=== PATIENT | female | born 1985 | race Caucasian/White ===

== ENCOUNTER 2018-01-10 08:13 | Outpatient (CLI) | payer OTHER | END 2018-01-10 08:14 | disposition home or self-care (01) | LOC: BICULT 08:13 | PROVIDERS: ATTEND Family Medicine | DX: R10.11 Right upper quadrant pain (principal); K82.8 Other specified diseases of gallbladder | CPT/HCPCS: 76700 ==

== ENCOUNTER 2018-04-10 06:33 | Day surgery (SDC) | payer OTHER ==
[2018-04-09 11:36] VITALS: BMI 36.8
--- NOTE | 2018-04-09 13:36 | ADD-HP ---
ADDENDUM Remedios Morales is a 32-year-old female prisoner initially evaluated for symptomatic cholelithiasis a nd cholecystitis who has now been approved for laparoscopic cholecystectomy. She is here today for t [facility] evaluation. LABORATORY DATA: Laboratories at [facility] on 04/01/2018; sodium 139, potassium 4.1, ch loride 106, CO2 23, creatinine 0.8, calcium 9.6, glucose 91, AST 23, ALT 68, alkaline phosphatase 78, bilirubin 0.5, white count 8.3, hemoglobin 13, hematocrit 39, platelet count 332,000. PHYSICAL EXAMINATION: LUNGS: Clear to auscultation. CARDIAC: Regular rate and rhythm without murmur or gallop. ABDOMEN: Soft and nontender except for mild tenderness to right upper quadrant. ASSESSMENT AND PLAN: Cholecystitis and cholelithiasis. I have recommended laparoscopic video cholec ystectomy. Risk of infection, bleeding, visceral or biliary injury previously discussed. Questions answered. PLAN: Laparoscopic cholecystectomy.
[2018-04-10] MEDS ORDERED: Bupivacaine HCl 0.5%/Epinephrine 1:200,000/PF 30 ml Vial ONE (07:17)
[2018-04-10] MEDS ORDERED: Levofloxacin 500 mg/D5W 100 ml Premix Bag ONE (08:07)
[2018-04-10] MEDS ORDERED: Ketorolac Tromethamine 30 MG/ML VIAL ONE (08:07)
[2018-04-10] MEDS ORDERED: Scopolamine 1.5 mg/72 hour Patch ONE (08:07)
[2018-04-10] MEDS ORDERED: HYDROmorphone 0.5 MG/0.5 ML SYRINGE ONE (08:34)
[2018-04-10] MEDS ORDERED: Fentanyl 100 MCG/2 ML VIAL ONE ×2 (08:34→11:00)
[2018-04-10] MEDS ORDERED: Promethazine HCl 25 MG/ML VIAL ONE (10:40)
--- NOTE | 2018-04-10 10:45 | OP ---
DATE OF PROCEDURE: 04/10/2018 PREOPERATIVE DIAGNOSES: Chronic and acute cholecystitis, cholelithiasis. POSTOPERATIVE DIAGNOSES: Chronic and acute cholecystitis, cholelithiasis with hydrops of the gallbla dder, (clear fluid due to chronic obstruction and gallstone). ANESTHESIA: General. Local 0.5% Marcaine with epinephrine, 30 mL. SURGEON: Dr. Tristian Morton PROCEDURE: Laparoscopic video cholecystectomy. PROCEDURE IN DETAIL: The patient was taken to the operating room where under general anesthesia, abd omen was prepared with ChloraPrep, draped in routine fashion. Local anesthetic infiltrated in the sk in and subcutaneous tissue about all port sites. Infraumbilical incision made and pneumoperitoneum t o 15 mmHg obtained with the Veress needle placing with a 5 port, video laparoscope inserted. Right s ubxiphoid incision made and 11 port placed. Right subcostal incision made mid clavicular anterior ax illary lines and 5 ports placed. Liver viscera were entirely normal. Gallbladder was distended and taut, wall thickened with edematous attachments. Fundus grasped and reflected cephalad. Infundibulu m grasped and the laterally. Cystic artery and duct dissected free. Critical view obtained. Cystic artery and duct doubly clipped proximally, divided. Gallbladder and contents and obstructing stone removed and submitted to Pathology. Good hemostasis obtained with the cautery. Irrigant and pneumop eritoneum evacuated. All instruments removed. All skin incisions approximated with interrupted subd ermal 4-0 Monocryl and DermaGlue applied. The patient tolerated the procedure well.
[2018-04-10] MEDS ORDERED: Ondansetron HCl/PF 4 MG/2 ML Vial ONE ×2 (10:59→13:45)
[2018-04-10] MEDS ORDERED: Ondansetron ODT 4 MG TAB ONE (12:09)
[2018-04-10] MEDS ORDERED: Dexamethasone 20 MG/5 ML VIAL ONE (13:45)
[2018-04-10] MEDS ORDERED: Succinylcholine Chloride 20 MG/ML 10 ml SYRINGE FS ONE (13:45)
[2018-04-10] MEDS ORDERED: Lidocaine 1% PF 5 ML VIAL ONE (13:45)
[2018-04-10] MEDS ORDERED: Metoclopramide HCl 10 MG/2 ML VIAL ONE (13:45)
[2018-04-10] MEDS ORDERED: PROPOFOL 200 MG/20 ML VIAL ONE (13:45)
[2018-04-10] MEDS ORDERED: Glycopyrrolate 0.2 MG/ML 5 ML SYRINGE ONE (13:45)
== END 2018-04-10 12:00 ==
LOC: SDC 06:33
PROVIDERS: ATTEND Specialist
PROC: 0FT44ZZ Resection of Gallbladder, Percutaneous Endoscopic Approach (ICD-10-PCS; principal; 2018-04-10)
DX: K80.12 Calculus of gallbladder with acute and chronic cholecystitis without obstruction (principal); K82.1 Hydrops of gallbladder
CPT/HCPCS: 88304; 96374; J0131; J0670; J1100; J1170; J1885; J1956; J2001; J2405; J2550; J2704; J2765; J3010; Q0162